=== PATIENT | female | born 1965 | race Caucasian/White ===

== ENCOUNTER → 2017-04-01 | Outpatient (CLI) | payer BC ==
[~2017-04-01] MED LIST: ATARAX PO; ELMIRON100 MG PO; KEFLEX PO; TYLOX 5/500 CAP1 CAP PO
--- NOTE | ~2017-04-01 | CR7 ---
[facility] A Service of [facility] & [facility] / [facility] RADIOLOGY TEXT RESULTS PATIENT: NENITA ROSS LOCATION: [facility] : 69 UNIT #: [id number] AGE: [address]: Marty Pineda MD SEX: F ORDER DR: [id number] [facility] [address] [place], [place] [address] [id number] O MR#: [id number] Acc #: [id number] NAME: NENITA ROSS : 1965 SEX: F STUDY DATE/TIME: 04/01/2017 10:08 UNIT: [facility] ROOM: STUDY DESCRIPTION: CR Abdomen Single AP View Attending Physician: Marty Pineda M.D. Referring Physician: Marty Pineda M.D. Ordering Physician: Marty Pineda M.D. Primary Care Physician: Johnathan Ji D.O. MEDICAL IMAGING REPORT This report is preliminary unless electronic signature is present EXAM Abdomen film, one-view; 04/01/2017, 1008 hours. CLINICAL HISTORY 51-year-old woman with history of renal stones, and urinary tract infections, complaining of left flank pain for [address] abdomen, 08/12/2007. FINDINGS Cone view of the abdomen and a cone view of the pelvis are performed. No definite obstruction is seen. There is increased stool in the right colon only. There are flecks of small hyperdensity seen over both kidneys partially obscured by stool, but likely representing small intrarenal stones. There is a large calcification projecting on the left side along the left margin of the transverse process of L3 measuring 1.5 x 0.9 cm not seen on prior CT abdomen from 2006. This is concerning for a large mid ureteral stone on the left. The pelvis film is negative. IMPRESSION 1. There is a 1.5 x 0.9 cm calcification projecting along the inferior margin of the left L3 transverse process which is not seen on prior CT from 2006, and could represent a large mid ureteral stone on the left. There are faint calcifications over both kidneys which appears small, but are partially obscured by stool and gas in the bowel but likely represent small intrarenal calculi. 2. Pelvis film demonstrates no definite distal stones. Dictated by... Sary Stallings M.D. [facility] A Service of [facility] / [facility] RADIOLOGY TEXT RESULTS PATIENT: NENITA ROSS LOCATION: [facility] : 69 UNIT #: [id number] AGE: [address]: Marty Pineda MD SEX: F ORDER DR: THIS IS AN ELECTRONICALLY VERIFIED REPORT Sary Stallings M.D. at 04/01/2017 5:19 PM CYNTHIA/macario TD: 04/01/2017 15:53 JOB #: [id number] MEDICAL IMAGING REPORT Page 1 of 1 COPY
== END | disposition home or self-care (01) ==
LOC: CRAD 09:54
DX: N20.0 Calculus of kidney (principal); N28.89 Other specified disorders of kidney and ureter
CPT/HCPCS: 74000